=== PATIENT | male | born 1985 | race Hispanic/Latino ===

== ENCOUNTER 2018-11-08 09:56 | Emergency (ER) | payer OTHER ==
[~2018-11-08] VITALS: Ht 175.3 cm; Wt 79.4 kg
[2018-11-08] MEDS ORDERED: TETANUS/DIPHTHERIA TOX ADULT 0.5 ML SYR IM ONE (11:00)
--- NOTE | 2018-11-08 12:08 | NUR ---
SPOKE WITH MILLY WITH [facility] REGARDING PATIENTS DOG BITE. PATIENT STATED THAT THE BITE HAPPENED 11/08/18 AT APPROX 2200. STATES IT WAS A MEDIUM SIZE BLACK DOG WITH NO COLLAR, AND THAT IT WAS ONE THAT THEY HAD NOT SEEN IN THE NEIGHBORHOOD BEFORE. THE BITE HAPPENED NEAR [address] [place] [address] IN [facility]. MILLY OF [facility] STATED THAT SHE WOULD NOTIFY ANIMAL CONTROL AND GET IN CONTACT WITH THE PATIENT
== END 2018-11-08 12:11 | disposition home or self-care (01) ==
LOC: ER 09:56
DX: S50.871A Other superficial bite of right forearm, initial encounter (principal); S70.372A Other superficial bite of left thigh, initial encounter; W54.0XXA Bitten by dog, initial encounter; Y92.488 Other paved roadways as the place of occurrence of the external cause
CPT/HCPCS: 90471; 90714; 99282